=== PATIENT | female | born 1975 | race Caucasian/White ===

== ENCOUNTER 2017-01-16 18:00 | Emergency (ER) | payer OTHER ==
[2017-01-16 18:09] VITALS: BP 133/89; PULSE 87; TEMP 98.6; BMI 25.8
--- NOTE | 2017-01-16 18:37 | PDOC ---
History of Present Illness - General History Source: Patient Exam Limitations: No Limitations <Zo Romero - Last Filed: 01/16/17 18:34> - History of Present Illness Initial Comments: 01/16/17 18:40 Patient is a 41 year old female, with no significant past medical history who presents to the ER s/p swallowing a foreign object. Patient states that she was playing with the tab on her coke can when it fell into her drink. She went to a meeting, came back, forgot it was there and was laughing and drinking and accidentally swallowed it. She states she can currently feel it in her throat and describes it at scratchy-like. <Divine Herrera - Last Filed: 01/16/17 18:41> - General Chief Complaint: Foreign Body (FB) Stated Complaint: FB INGESTION - PART OF SODA CAN Time Seen by Provider: 01/16/17 18:21 Past History - Past Medical History Cancer: Yes (KIDNEY CANCER) COPD: No - Suicide/Smoking/Psychosocial Hx Smoking History: Former smoker Have you smoked in the past 12 months: No Information on smoking cessation initiated: No <Zo Romero - Last Filed: 01/16/17 18:34> <Divine Herrera - Last Filed: 01/16/17 18:41> - Past Medical History Allergies/Adverse Reactions: Allergies Allergy/AdvReac Type Severity Reaction Status Date / Time amoxicillin Allergy Verified 01/16/17 18:03 Sulfa (Sulfonamide Allergy Verified 01/16/17 18:18 Antibiotics) Home Medications: Ambulatory Orders Ascorbate Calcium [Vitamin C] 500 mg PO DAILY 01/16/17 Folic Acid 1 mg PO DAILY 01/16/17 Multivitamin [One Daily] 1 each PO DAILY 01/16/17 Review of Systems - Review of Systems Comments:: 01/16/17 18:40 GENERAL/CONSTITUTIONAL: No fever or chills. No weakness. HEAD, EYES, EARS, NOSE AND THROAT: + throat irritation s/p swallowing foreign body. No change in vision. No ear pain or discharge. No sore throat. GASTROINTESTINAL: No nausea, vomiting, diarrhea or constipation. GENITOURINARY: No dysuria, frequency, or change in urination. CARDIOVASCULAR: No chest pain or shortness of breath. RESPIRATORY: No cough, wheezing, or hemoptysis. MUSCULOSKELETAL: No joint or muscle swelling or pain. No neck or back pain. SKIN: No rash NEUROLOGIC: No headache, vertigo, loss of consciousness, or change in strength/ sensation. ENDOCRINE: No increased thirst. No abnormal weight change. HEMATOLOGIC/LYMPHATIC: No anemia, easy bleeding, or history of blood clots. ALLERGIC/IMMUNOLOGIC: No hives or skin allergy. <Divine Herrera - Last Filed: 01/16/17 18:41> *Physical Exam - Vital Signs Last Vital Signs Temp Pulse Resp BP Pulse Ox 98.6 F 87 18 133/89 100 01/16/17 18:00 01/16/17 18:00 01/16/17 18:00 01/16/17 18:00 01/16/17 18:00 <Zo Romero - Last Filed: 01/16/17 18:34> - Vital Signs Last Vital Signs Temp Pulse Resp BP Pulse Ox 98.6 F 87 18 133/89 100 01/16/17 18:00 01/16/17 18:00 01/16/17 18:00 01/16/17 18:00 01/16/17 18:00 - Physical Exam Comments: 01/16/17 18:41 GENERAL: Awake, alert, and fully oriented, in no acute distress HEAD: No signs of trauma EYES: PERRLA, EOMI, sclera anicteric, conjunctiva clear ENT: Oropharynx clear. Auricles normal inspection, nares patent, Moist mucosa NECK: Normal ROM, supple, no lymphadenopathy, JVD, or masses LUNGS: Breath sounds equal, clear to auscultation bilaterally. No wheezes, and no crackles HEART: Regular rate and rhythm, normal S1 and S2, no murmurs, rubs or gallops ABDOMEN: Soft, nontender, normoactive bowel sounds. No guarding, no rebound. No masses EXTREMITIES: Normal range of motion, no edema. No clubbing or cyanosis. No cords, erythema, or tenderness NEUROLOGICAL: Normal speech SKIN: Warm, Dry, normal turgor, no rashes or lesions noted. <Divine Herrera - Last Filed: 01/16/17 18:41> ED Treatment Course - RADIOLOGY Radiology Studies Ordered: Category Date Time Status KUB (KID UR & BLAD) [RAD] Stat Radiology 01/16/17 18:34 Ordered NECK SOFT TISSUE [RAD] Stat Radiology 01/16/17 18:23 Ordered <Zo Romero - Last Filed: 01/16/17 18:34> Medical Decision Making - Medical Decision Making 01/16/17 18:34 41-year-old female no significant past medical history here today having swallowed a pop countertop will drinking her soda. Patient states she forgot it was in the soda can and trinket denies any choking sensation no vomiting. Does have a scratchy feeling in the back of her throat. No nausea no vomiting since On exam no stridor oropharynx is clear. Abdomen is nontender no wheezing on lung exam Plan patient's abdomen will likely pass without intervention. We will obtain x- ray to evaluate location and reassess following <Zo Romero - Last Filed: 01/16/17 18:34> *DC/Admit/Observation/Transfer <Zo Romero - Last Filed: 01/16/17 18:34> - Attestations Scribe Attestion: 01/16/17 18:41 Documentation prepared by Divine Herrera, acting as medical laboratory technicians for Zo Romero MD. <Divine Herrera - Last Filed: 01/16/17 18:41> Diagnosis at time of Disposition: Foreign body ingestion - Discharge Dispostion Condition at time of disposition: Improved - Referrals Referrals: Galindo Singer MD [Staff Physician] - - Patient Instructions Printed Discharge Instructions: DI for Foreign Body, Swallowed-Child Additional Instructions: you will likely pass This foreign body without any intervention and without any problems. Return for any abdominal pain, fevers, or any concerns. He may follow up with a batch still operator Dr. Singer, see referral information for phone number
--- NOTE | 2017-01-16 19:38 | PDOC ---
*Physical Exam - Vital Signs Last Vital Signs Temp Pulse Resp BP Pulse Ox 98.6 F 87 18 133/89 100 01/16/17 18:00 01/16/17 18:00 01/16/17 18:00 01/16/17 18:00 01/16/17 18:00 ED Treatment Course - ADDITIONAL ORDERS Additional order review: Laboratory Results 01/16/17 18:28 Urine HCG, Qual Negative Progress Note - Progress Note Progress Note: Care of this patient received from . Soft tissue neck and abdomen/pelvic plain films reviewed: No clear evidence of metallic density foreign body seen . Bone density seen in mid neck. Films reviewed with : Although he believes the bone density object in the midneck is the cricoid cartilage, he recommended noncontrast soft tissue of the neck CT to fully rule out foreign body. Noncontrast soft tissue of the neck CT reveals no evidence of foreign body in pharynx/larynx/upper trachea /upper esophagus Results discussed with the patient and her . Patient expressed some concern regarding safe passage of the foreign body. Patient was reassured that this was very likely to occur spontaneously and naturally without patient needing to do anything. Of course, she should return to ER or see her doctor if she has any abdominal pain/nausea/vomiting/rectal bleeding. *DC/Admit/Observation/Transfer Diagnosis at time of Disposition: Foreign body ingestion Qualifiers: Encounter type: initial encounter Qualified Code(s): T18.9XXA - Foreign body of alimentary tract, part unspecified, initial encounter - Discharge Dispostion Disposition: HOME Condition at time of disposition: Improved - Referrals Referrals: Galindo Singer MD [Staff Physician] - - Patient Instructions Printed Discharge Instructions: DI for Foreign Body, Swallowed-Adult Additional Instructions: you will likely pass this foreign body without any intervention and without any problems. Return for any abdominal pain, fevers, or any concerns. You may follow up with a high school home economics teacher Dr. Singer, see referral information for phone number - Post Discharge Activity
== END 2017-01-16 21:29 | disposition home or self-care (01) ==
LOC: FER 18:00
DX: T18.8XXA Foreign body in other parts of alimentary tract, initial encounter (principal)
CPT/HCPCS: 70360-TC; 70490-TC; 74000-TC; 84703; 99283-25